=== PATIENT | female | born 1950 | race Asian ===

== ENCOUNTER 2017-07-15 08:33 | Outpatient (CLI) | payer OTHER, MEDICARE ==
[~2017-07-15 08:33] MED LIST: AMLO10TA PO; ASPI325T40 PO; CARV3.12 PO; EXFORGE1 TA2 PO; LISI20TA11 PO; OMEP20CA PO; PREDNISONE2.5 MG OR; VALS160T PO
== END 2017-07-15 19:07 | disposition home or self-care (01) ==
LOC: MAMMO 08:33
DX: Z12.31 Encounter for screening mammogram for malignant neoplasm of breast (principal); Z13.820 Encounter for screening for osteoporosis; Z78.0 Asymptomatic menopausal state

== ENCOUNTER 2017-10-01 08:11 | Outpatient (CLI) | payer OTHER, MEDICARE ==
[2017-10-01 08:48] LABS: PLATELET COUNT 180 K/uL (152-353)
[2017-10-01 09:22] LABS: POTASSIUM 4.1 mmol/L (3.6-5.2)
== END 2017-10-01 21:57 | disposition home or self-care (01) ==
LOC: LABW 08:11
DX: I11.0 Hypertensive heart disease with heart failure (principal); E11.9 Type 2 diabetes mellitus without complications; D64.89 Other specified anemias; M31.4 Aortic arch syndrome [Takayasu]; I31.0 Chronic adhesive pericarditis; E78.4 Other hyperlipidemia; R35.1 Nocturia; E55.9 Vitamin D deficiency, unspecified
CPT/HCPCS: 36415; 80053; 80061; 82306; 83036; 83735; 84443; 85027; 85651

== ENCOUNTER 2018-04-12 08:18 | Outpatient (CLI) | payer OTHER, MEDICARE ==
[2018-04-12 08:45] LABS: PLATELET COUNT 180 K/uL (152-353)
[2018-04-12 09:09] LABS: POTASSIUM 3.3 mmol/L (3.6-5.2)
== END 2018-04-12 23:28 | disposition home or self-care (01) ==
LOC: LABW 08:18
DX: I10 Essential (primary) hypertension (principal); E11.9 Type 2 diabetes mellitus without complications; E55.9 Vitamin D deficiency, unspecified; R35.0 Frequency of micturition; E78.2 Mixed hyperlipidemia
CPT/HCPCS: 36415; 80053; 80061; 81000; 82306; 83036; 83735; 84443; 85027

== ENCOUNTER 2018-07-18 08:40 | Outpatient (CLI) | payer OTHER, MEDICARE | END 2018-07-18 22:46 | disposition home or self-care (01) | LOC: MAMMO 08:40 | DX: Z12.31 Encounter for screening mammogram for malignant neoplasm of breast (principal) ==

== ENCOUNTER 2018-11-24 08:06 | Outpatient (CLI) | payer OTHER, MEDICARE ==
[2018-11-24 08:32] LABS: PLATELET COUNT 172 K/uL (152-353)
[2018-11-24 08:46] LABS: POTASSIUM 2.9 mmol/L (3.6-5.2)
== END 2018-11-24 20:28 | disposition home or self-care (01) ==
LOC: LABW 08:06
DX: I10 Essential (primary) hypertension (principal); E11.9 Type 2 diabetes mellitus without complications; E55.9 Vitamin D deficiency, unspecified; R35.0 Frequency of micturition; E78.2 Mixed hyperlipidemia; M31.4 Aortic arch syndrome [Takayasu]; I71.2 Thoracic aortic aneurysm, without rupture
CPT/HCPCS: 36415; 80053; 80061; 81000; 82306; 83036; 83735; 84436; 84443; 85027

== ENCOUNTER 2018-12-08 07:56 | Outpatient (CLI) | payer OTHER, MEDICARE ==
[2018-12-08 08:58] LABS: POTASSIUM 3.2 mmol/L (3.6-5.2)
== END 2018-12-08 19:47 | disposition home or self-care (01) ==
LOC: LABW 07:56
DX: R68.89 Other general symptoms and signs (principal); E87.5 Hyperkalemia
CPT/HCPCS: 36415; 80048; 83735

== ENCOUNTER 2019-06-21 04:40 | Emergency (ER) | payer OTHER, MEDICARE ==
[~2019-06-21] VITALS: Ht 170.2 cm; Wt 65.3 kg
[2019-06-21 04:45] VITALS: TEMP 98.3
[2019-06-21 05:42] LABS: PLATELET COUNT 115 K/uL (152-353)
[2019-06-21 05:50] LABS: POTASSIUM 3.7 mmol/L (3.6-5.2)
[2019-06-21 10:15] VITALS: BP 111/63
== END 2019-06-21 10:15 | disposition short-term general hospital (02) ==
LOC: ED 04:40
PROVIDERS: Student in an Organized Health Care Education/Training Program
DX: I71.2 Thoracic aortic aneurysm, without rupture (principal); I71.4 Abdominal aortic aneurysm, without rupture
CPT/HCPCS: 36415; 80053; 83605; 83690; 83735; 85027; 93005; 96360; 96375; 99285; J2175; J2270; J2405